=== PATIENT | female | born 1960 | race Caucasian/White ===

== ENCOUNTER 2016-11-24 11:51 | Day surgery (SDC) | payer OTHER ==
[~2016-11-24] VITALS: Ht 168.9 cm; Wt 72.6 kg
[~2016-11-24 11:51] MED LIST: CYCL5TAB PO; HYDR-3498 PO; HYDR-906 PO; Harvoni PO; IBUP-1542 PO; LEVO750T25 PO; UDROBDM PO
[2016-11-24 12:46] VITALS: Ht 168.9 cm; Wt 72.6 kg
[2016-11-24] MEDS ORDERED: MELOXICAM PO (12:50)
[2016-11-24] MEDS ORDERED: PROPOFOL 40 ML ONE (12:56)
[2016-11-24] MEDS ORDERED: LIDOCAINE 2% (SDV) 5 ML INJ ONE (12:56)
[2016-11-24 12:57] VITALS: BP 143/97; PULSE 70; RESP 18
[2016-11-24 13:56] VITALS: BP 154/79; PULSE 60; RESP 16
--- NOTE | 2016-11-24 15:26 | GILP ---
DATE OF PROCEDURE: 11/24/2016 PROCEDURE: Colonoscopy with polyp ablation plus localization tattoo and biopsies. SURGEON: Shashi Hernandez MD BRIEF HISTORY/INDICATIONS: The patient is being evaluated for intermittent diarrhea and colorectal cancer screening. PREMEDICATION: Monitored anesthesia care by anesthesiologist. INSTRUMENT USED: Olympus colonoscope. PREPARATION: Adequate. TECHNIQUE: After informed consent, with the patient/relatives understanding the procedure, its indic ations potential risks and complications, including but not limited to: allergic reaction, bleeding, perforation, infection, missed lesions and after all pertinent questions were answered to the patie nt's satisfaction, the patient/relatives signed the witnessed informed consent. Following this, premedication was administered slowly IV push by under careful cardiovascular and re spiratory monitoring with pulse oximetry, automatic blood pressure and drying machine receiver. Once the sedativ e effect was achieved, the patient was placed in the left lateral decubitus position, digital rectal examination was performed. The colonoscope was then introduced and advanced under visual control th roughout all segments of the colon including: the rectum, sigmoid, descending colon, splenic flexure , transverse colon, hepatic flexure, ascending colon and finally reaching the cecum which was clearl y identified by transillumination, finger indentation and the ileocecal valve. Careful examination o f the mucosa of the lower gastrointestinal tract both on insertion as well as withdrawal of the inst rument disclosed the following findings: Rectal Examination: No evidence of perirectal disease, no masses. Colonic Mucosa: The colonic mucosa is remarkable for an 8 mm flat sessile polyp in the sigmoid colo n. The polyp was completely ablated with biopsy forceps. A second 3 mm sessile polyp was noted in the same area, was also ablated with biopsy forceps. Localization tattoo was applied given the natu re of the polyp, i.e., flat, 8 mm. The remainder of the colonic mucosa is remarkable for diverticu losis of a moderate degree. There is a 4 mm sessile polyp in the mid ascending colon which was ablated with biopsy forceps witho ut difficulty or complication. The ileocecal valve was clearly identified and appears unremarkable. The instrument was withdrawn reexamining the mucosa in detail. No additional abnormalities are no marga with exception of moderate sized internal hemorrhoids. The patient tolerated the procedure well and was transferred out of the [facility] awake and in good condition to continue recovery under observation. IMPRESSION: 1. An 8 mm sessile polyp sigmoid colon ablated. 2. A 3 mm sessile polyp in the same area in the sigmoid colon ablated. Localization tattoo applied . 3. A 4 mm sessile polyp in the ascending colon, ablated. 4. Diverticulosis, universal, mild to moderate. 5. Moderate sized internal hemorrhoids. PLAN: The patient will be followed up as an outpatient. Pathology will be reviewed as soon as zaida gordon. Given the nature of the lesion and the size 8 mm flat sessile polyp, early reevaluation in o ne year is recommended. All of this obviously pending review of pathology. Dictated By: SHASHI HERNANDEZ MS/CASA Conf#: [id number] DID#: [id number] CC: SHASHI HERNANDEZ;*EndCC*
== END 2016-11-24 16:07 | disposition home or self-care (01) ==
LOC: GIL 11:51
PROVIDERS: ATTEND Internal Medicine Gastroenterology
DX: Z12.11 Encounter for screening for malignant neoplasm of colon (principal); K63.5 Polyp of colon; K57.30 Diverticulosis of large intestine without perforation or abscess without bleeding; K64.8 Other hemorrhoids; K52.9 Noninfective gastroenteritis and colitis, unspecified; M19.90 Unspecified osteoarthritis, unspecified site; Z88.0 Allergy status to penicillin; Z88.2 Allergy status to sulfonamides
CPT/HCPCS: 45380; 45381; 88305; Z7610

== ENCOUNTER → 2016-11-26 | Outpatient (CLI) | payer OTHER ==
[~2016-11-26] MED LIST changes: -CYCL5TAB PO; -HYDR-3498 PO; -HYDR-906 PO; -Harvoni PO; -LEVO750T25 PO; +MELOXICAM PO; -UDROBDM PO
== END | disposition home or self-care (01) ==
LOC: HKI 15:39
PROVIDERS: ATTEND Orthopaedic Surgery
DX: S83.232D Complex tear of medial meniscus, current injury, left knee, subsequent encounter (principal); M25.562 Pain in left knee
CPT/HCPCS: G0463